=== PATIENT | male | born 1975 | race Caucasian/White ===

== ENCOUNTER 2022-05-20 17:41 | Emergency (ER) | payer MEDICAID ==
[~2022-05-20] VITALS: Ht 175.3 cm; Wt 72.6 kg
--- NOTE | 2022-05-20 17:50 | NUR ---
Patient to ER H3 to gown for evaluation. Side rails up. WITH LAW ENFORCEMENT
[2022-05-20 17:53] VITALS: BP_SYST 145
[2022-05-20 19:28] LABS: BILIRUBIN,URINE 1+ (NEGATIVE); CLARITY/URINE CLEAR (CLEAR); COLOR,URINE YELLOW (YELLOW); GLUCOSE,URINE NEGATIVE (NEGATIVE); KETONES,URINE 1+ (NEGATIVE); LEUKOCYTE ESTERASE ,URINE NEGATIVE (NEGATIVE); NITRITE, URINE NEGATIVE (NEGATIVE); PROTEIN URINE TRACE (NEGATIVE)
[2022-05-20 19:52] LABS: BLOOD, URINE TRACE (NEGATIVE)
[2022-05-20 20:02] LABS: BACTERIA,URINE FEW /HPF (None Seen); RBC,URINE 0-3 /HPF (0-3); WBC,URINE 0-3 /HPF (0-3)
[2022-05-20 20:03] LABS: CALCIUM OXALATE CRYSTALS,UR 0-10 /HPF (None Seen); MUCUS,URINE None Seen /LPF (None Seen)
--- NOTE | 2022-05-20 21:22 | NUR ---
ER at bedside examining patient.
[2022-05-20] MEDS ORDERED: ONDA-8 TL (21:23)
[2022-05-20] MEDS ORDERED: ONDANSETRON 4 MG ODT TAB PO ONE (21:30)
[2022-05-20] MEDS ORDERED: METOPROLOL SUCCINATE 50 MG TAB.SR.24H (TOPROL XL) PO ONE ×2 (21:45→22:03)
[2022-05-20 22:18] VITALS: BP_SYST 122
--- NOTE | 2022-05-20 22:18 | NUR ---
Patient and OLIMPIA mares's given written and verbal discharge instructions and verbalizes understanding. ER MD discussed with patient the results and treatment provided. Patient in stable condition. ID arm band removed. Rx of zofran given. Patient educated on pain management and to follow up with PMD. Pain Scale 0/10 Opportunity for questions provided and answered. Medication side effect fact sheet provided.
== END 2022-05-20 22:18 | disposition home or self-care (01) ==
LOC: SED 17:41
DX: Z02.89 Encounter for other administrative examinations (principal); A08.4 Viral intestinal infection, unspecified; R11.2 Nausea with vomiting, unspecified; F41.9 Anxiety disorder, unspecified; I10 Essential (primary) hypertension; Z79.899 Other long term (current) drug therapy
CPT/HCPCS: 99284; 71045; 81000; Q0162

== ENCOUNTER 2023-03-30 12:36 | Emergency (ER) | payer MEDICAID ==
[~2023-03-30] VITALS: Ht 175.3 cm; Wt 86.2 kg
[~2023-03-30 12:36] MED LIST: ONDA-8 TL
[2023-03-30 12:58] VITALS: BP_SYST 130; PULSE 96; RESP 16; TEMP 97.7; O2SAT 95
--- NOTE | 2023-03-30 13:03 | NUR ---
Placed in room 6 . Placed on ski molder, blood pressure machine and pulse oximeter. To gown for exam. Side rails up.
--- NOTE | 2023-03-30 13:42 | NUR ---
PT BIB SELF AWAKE AND ALERT AOX4. PT HERE BECAUSE HE HAD A SEIZURE 2 DAYS AGO AT HOME. PT STATED HE CALLED HIS DR, AND HIS DR TOLD HIME HE COULDNT SEE HIM SO HE SHOULD GO TO ER TO GET A WORK UP. PT DENIES PAIN.
--- NOTE | 2023-03-30 13:43 | NUR ---
MD DR COOK AT BEDSIDE
[2023-03-30 13:49] LABS: BILIRUBIN,URINE NEGATIVE (NEGATIVE); CLARITY/URINE SL CLOUDY (CLEAR); COLOR,URINE YELLOW (YELLOW); GLUCOSE,URINE NEGATIVE (NEGATIVE); KETONES,URINE TRACE (NEGATIVE); LEUKOCYTE ESTERASE ,URINE NEGATIVE (NEGATIVE); NITRITE, URINE NEGATIVE (NEGATIVE); PROTEIN URINE NEGATIVE (NEGATIVE); UROBILINOGEN,URINE 0.2 (0.2-1.0)
[2023-03-30 13:49] LABS: BASOPHILS # (AUTO) 0.1 K/uL (0.0-0.2); BASOPHILS % (AUTO) 0.9 % (0.0-2.0); EOSINOPHILS # (AUTO) 0.1 K/uL (0.0-0.4); EOSINOPHILS % (AUTO) 0.8 % (0.0-4.0); HEMATOCRIT 43.5 % (36-54); HEMOGLOBIN 14.6 g/dL (14.0-18.0); LYMPHOCYTES # (AUTO) 1.5 K/uL (1.0-5.5); LYMPHOCYTES % (AUTO) 21.2 % (20.5-51.5); MEAN CORPUSCULAR HEMOGLOBIN 30 pg (27-31); MEAN CORPUSCULAR HGB CONC 34 % (32-36); MEAN CORPUSCULAR VOLUME 89 fL (79.0-98.0); MONOCYTES # (AUTO) 0.4 K/uL (0.0-1.0); MONOCYTES % (AUTO) 6.3 % (1.7-9.3); NEUTROPHILS # (AUTO) 4.9 K/uL (1.8-7.7); NEUTROPHILS % (AUTO) 70.8 % (40.0-70.0); PLATELET COUNT (AUTO) 202 K/uL (130-430); RED BLOOD CELL COUNT(AUTO) 4.88 MIL/uL (4.2-6.2); RED CELL DISTRIBUTION WIDTH 13.8 % (9.0-15.0); WHITE BLOOD COUNT (AUTO) 6.9 K/uL (4.8-10.8)
[2023-03-30 13:55] LABS: BLOOD, URINE TRACE (NEGATIVE)
[2023-03-30 13:59] LABS: BACTERIA,URINE RARE /HPF (None Seen); MUCUS,URINE 1+ /LPF (None Seen); RBC,URINE 0-3 /HPF (0-3); WBC,URINE 0-3 /HPF (0-3)
[2023-03-30 14:02] LABS: BARBITURATE, URINE NEGATIVE (NEG <=200); BENZODIAZEPINE, URINE POSITIVE (NEG <=150); CANNABINOID, URINE NEGATIVE (NEG <=50); COCAINE, URINE NEGATIVE (NEG <=150); METHAMPHETAMINES SCREEN,URINE NEGATIVE (NEG <=500); OPIATE, URINE POSITIVE (NEG <=100); PHENCYCLIDINE SCREEN,URINE NEGATIVE (NEG <=25); URINE AMPHETAMINE NEGATIVE (NEG <=500); URINE METHADONE NEGATIVE (NEG <=200); URINE OXYCODONE SCREEN NEGATIVE (NEG <=100); URINE PROPOXYPHENE SCREEN NEGATIVE (NEG <=300)
[2023-03-30 14:03] LABS: UR TRICYCLIC ANTIDEPRESSANTS POSITIVE (NEG <=300)
[2023-03-30 14:42] LABS: ALANINE AMINOTRANSFERASE 22 U/L (12-78); ALBUMIN 3.4 g/dL (3.4-4.8); ANION GAP 7 (5-15); ASPARTATE AMINOTRANSFERASE 22 U/L (10-37); CALCIUM 8.6 mg/dL (8.4-11.0); CHLORIDE 103 mmol/L (98-107); CREATININE 1.06 mg/dL (0.55-1.30); GFR AFRICAN AMERICAN 95 mL/min (>90); GLUCOSE 94 mg/dL (74-106); TOTAL BILIRUBIN 0.3 mg/dL (0.0-1.0); UREA NITROGEN, BLOOD 16 mg/dL (8-21)
[2023-03-30 14:45] LABS: ALCOHOL, BLOOD < 3 mg/dL (<10)
[2023-03-30 15:13] VITALS: BP_SYST 135; PULSE 74; RESP 18; TEMP 97.3; O2SAT 97
--- NOTE | 2023-03-30 15:14 | NUR ---
Patient given written and verbal discharge instructions and verbalizes understanding. ER MD DR COOK discussed with patient the results and treatment provided. Patient in stable condition. ID arm band removed. Patient educated on pain management and to follow up with PMD. Pain Scale 0/10. Opportunity for questions provided and answered. Medication side effect fact sheet provided.
== END 2023-03-30 15:14 | disposition home or self-care (01) ==
LOC: SED 12:36
DX: R56.9 Unspecified convulsions (principal); Z91.411 Personal history of adult psychological abuse; Z86.59 Personal history of other mental and behavioral disorders; Z79.899 Other long term (current) drug therapy
CPT/HCPCS: 99283; 80307; 80053; 83735; 85025; 36415; 81000; G0482

== ENCOUNTER 2023-05-08 13:28 | Emergency (ER) | payer MEDICAID ==
[~2023-05-08] VITALS: Ht 175.3 cm; Wt 86.2 kg
[2023-05-08 13:40] VITALS: BP_SYST 123; PULSE 69; RESP 16; TEMP 97.4; O2SAT 98
[2023-05-08] MEDS ORDERED: KETOROLAC TROMETHAMINE 30 MG VIAL IM ONE (14:15)
[2023-05-08] MEDS ORDERED: NABU-140 PO (14:56)
[2023-05-08 15:16] VITALS: BP_SYST 125; PULSE 72; RESP 16; TEMP 97.8; O2SAT 98
== END 2023-05-08 15:17 | disposition home or self-care (01) ==
LOC: SED 13:28
DX: M54.50 Low back pain, unspecified (principal); Z91.018 Allergy to other foods; Z79.899 Other long term (current) drug therapy
CPT/HCPCS: 99283; 96372; J1885